=== PATIENT | female | born 1955 ===

== ENCOUNTER 2025-01-27 11:46 | Outpatient (CLI) | payer MEDICARE, MEDICAID ==
[~2025-01-27 11:46] MED LIST: GADOTERATE MEGLUMINE 7.5 MMOL/15 ML VIAL IV ONE
--- NOTE | 2025-01-27 13:25 | RADIOLOGY REPORT ---
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 FINDINGS: There is no abnormal diffusion restriction. There is no intracranial hemorrhage. No extra-axial flui d collection, mass effect or midline shift. The ventricles are midline and normal in size. The cister ns are patent. Normal intracranial flow voids are preserved. No abnormal susceptibility signal. The sinuses and mastoids are well pneumatized. The bilateral orbital lens are absent. Extraocular muscles unremarkable. Optic nerves do not demons trate abnormal signal intensity. No retrobulbar mass. Optic chiasm unremarkable. IMPRESSION: No acute cerebrovascular ischemia. Bilateral orbital lens absent. Otherwise, no abnormality of the orbits on noncontrast MRI. No evidence for occipital lobe encephalomalacia.
[2025-01-28] MEDS ORDERED: GADOTERATE MEGLUMINE 7.5 MMOL/15 ML VIAL IV ONE (17:47)
== END 2025-01-27 23:59 | disposition home or self-care (01) ==
LOC: MRI02 11:46
PROVIDERS: ATTEND Physician Assistant Medical
DX: G44.319 Acute post-traumatic headache, not intractable (principal); H53.483 Generalized contraction of visual field, bilateral; H54.3 Unqualified visual loss, both eyes
CPT/HCPCS: 70540; 70551; A9575